=== PATIENT | male | born 1990 | race Caucasian/White ===

== ENCOUNTER 2020-09-30 15:25 | Emergency (ER) | payer OTHER ==
[~2020-09-30] VITALS: Ht 180.3 cm; Wt 54.4 kg
[2020-09-30 16:01] LABS: URINE BILIRUBIN NEGATIVE (Negative); URINE BLOOD NEGATIVE (Negative); URINE CLARITY CLEAR; URINE COLOR YELLOW; URINE GLUCOSE-RANDOM* NEGATIVE (Negative); URINE KETONES NEGATIVE (Negative); URINE LEUKOCYTES-REFLEX NEGATIVE (Negative); URINE NITRITE-REFLEX NEGATIVE (Negative); URINE PROTEIN (DIPSTICK) NEGATIVE (Negative); URINE UROBILINOGEN 0.2 E.U./dl (0.2-1.0)
[2020-09-30 16:05] LABS: ABSOLUTE NEUTROPHILS 3.6 thou/uL (1.4-8.2); BASOPHILS 0.9 % (0.0-2.0); HEMATOCRIT 43.2 % (42.0-52.0); HEMOGLOBIN 15.1 gm/dL (14.0-18.0); LYMPHOCYTES 28.4 % (24.0-44.0); MCH 29.7 pg (26.0-34.0); MCV 84.8 fL (80.0-100.0); MONOCYTES 4.7 % (1.0-8.0); PLATELET COUNT 233 thou/uL (150-400); RDW 13.2 % (10.5-14.5); WBC 5.7 thou/uL (4.0-11.0)
[2020-09-30 16:20] LABS: ANION GAP 7 mmol/L (7-16); BUN 13 mg/dL (7-18); CALCIUM 8.9 mg/dL (8.5-10.1); CHLORIDE 105 mmol/L (98-107); CO2 31 mmol/L (21-32); CREATININE 1.3 mg/dL (0.7-1.3); GLUCOSE 100 mg/dL (74-106); POTASSIUM 3.5 mmol/L (3.5-5.1); SODIUM 143 mmol/L (136-145)
[2020-09-30 16:30] LABS: MAGNESIUM 2.1 mg/dL (1.8-2.4); SGOT 43 U/L (15-37); SGPT 52 U/L (16-63); TOTAL BILIRUBIN 0.4 mg/dL (0.2-1.0); TOTAL PROTEIN 7.8 g/dL (6.4-8.2); TROPONIN-I <0.06 ng/mL (<0.06)
[2020-09-30 18:00] VITALS: BP 118/67
--- NOTE | 2020-10-01 06:36 | EKG ---
[address] [address] ELECTROCARDIOGRAM REPORT Name: LY CALLEJAS Room #: [facility] MIAN Hewitt#: [id number] Admission: 09/30/20 Attend Phys: Discharge: 09/30/20 Date of : 89 Report #: [id number] [facility] ED Test Date: 2020-09-30 Test Time: 16:04:35 Pat Name: LY CALLEJAS Department: Room: Gender: Station [employer]: : 1990 Requested By: Johnathan Caicedo Order Number: [id number] MD: Daniel Field Measurements Intervals [place] Rate: 73 P: 56 DE: 144 QRS: 57 QRSD: 99 T: 58 QT: 352 QTc: 388 Interpretive Statements Sinus rhythm No previous ECG available for comparison Electronically Signed On 10-01-2020 6:36:44 CDT by Daniel Field [email or web address] <ELECTRONICALLY SIGNED> By: Daniel Field MD, [facility] 10/01/20 0636 1604 1604 Daniel Field MD, FACC /EPI
== END 2020-09-30 18:15 | disposition home or self-care (01) ==
LOC: ER 15:25
PROVIDERS: Physician Assistant
DX: R42 Dizziness and giddiness (principal); R00.2 Palpitations; R06.02 Shortness of breath; R53.1 Weakness